=== PATIENT | male | born 1985 | race Caucasian/White ===

== ENCOUNTER 2017-05-21 03:02 | Observation (INO) | payer BC ==
[2017-05-21 04:12] LABS: #Basophils 0.1 thou/uL (0.0-0.2); #Eosinphils 0.1 thou/uL (0.0-0.7); #Lymphocytes 2.2 thou/uL (1.20-3.40); #Neutrophils 8.3 thou/uL (1.40-6.50); %Basophils 0.4 % (0.0-1.0); %Eosinophils 0.9 % (0.0-10.0); %Lymphocytes 19.2 % (21.0-51.0); %Monocytes 8.4 % (0.0-10.0); %Neutrophils 71.1 % (42.0-75.0); Mean Corpuscular HGB CONC 34.3 g/dL (32.0-36.0); Mean Corpuscular Hemoglobin 31.3 pg (27.0-31.0); Mean Corpuscular Volume 91.3 fl (80.0-94.0); Mean Platelet Volume 6.8 fL (7.4-10.4); Platelet Count 244 thou/uL (130-400); RBC Distribution Width 11.7 % (11.5-14.5); Red Blood Cell (RBC) Count 5.42 mill/uL (4.70-6.10); White Blood Cell (WBC) Count 11.7 thou/uL (4.8-10.8)
[2017-05-21 04:28] LABS: ALT (SGPT) 19 U/L (8-55); AST (SGOT) 16 U/L (5-34); Albumin 4.5 g/dL (3.5-5.0); Alkaline Phosphatase 82 U/L (40-150); Anion Gap 13 mmol/L (10-20); BUN (Urea Nitrogen) 13 mg/dL (8.9-20.6); Bilirubin, Total 0.5 mg/dL (0.2-1.2); Calc. Creatinine Clearance 0 mL/min (70-130); Calcium 9.8 mg/dL (7.8-10.44); Carbon Dioxide 27 mmol/L (22-29); Chloride 100 mmol/L (98-107); Estimated GFR-MDRD 61; Globulin 3.8 g/dL (2.4-3.5); Glucose 107 mg/dL (70-105); Potassium 3.9 mmol/L (3.5-5.1); Protein, Total 8.3 g/dL (6.0-8.3); Sodium 136 mmol/L (136-145)
[2017-05-21] MEDS ORDERED: Clindamycin/D5W 900 mg/50 ml Premix Bag ONE (04:32)
[2017-05-21] MEDS ORDERED: Morphine 4 MG/ML VIAL ONE ×2 (04:32→05:09)
[2017-05-21] MEDS ORDERED: Fentanyl 100 MCG/2 ML VIAL ONE ×4 (07:51→15:08)
[2017-05-21] MEDS ORDERED: Ondansetron HCl/PF 4 MG/2 ML Vial IVP PRN ×3 (08:28→15:13)
[2017-05-21] MEDS ORDERED: Benzonatate 100 MG CAP PO PRN (08:28)
[2017-05-21] MEDS ORDERED: Acetaminophen 325 MG TAB PO PRN (08:28)
[2017-05-21] MEDS ORDERED: Loratadine 10 MG TAB PO PRN (08:28)
[2017-05-21] MEDS ORDERED: Morphine 4 MG/ML Carpuject SLOW IVP PRN (08:28)
[2017-05-21] MEDS ORDERED: traMADol HCl 50 MG TAB PO PRN (08:28)
[2017-05-21] MEDS ORDERED: Nitroglycerin 0.4 MG TAB (25 Tab Bottle) SL PRN (08:28)
[2017-05-21] MEDS ORDERED: Calcium Carbonate 500 MG ChewTAB PO PRN (08:28)
[2017-05-21] MEDS ORDERED: HYDROcodone/Acetaminophen 5/325 mg Tablet PO PRN (08:28)
[2017-05-21] MEDS ORDERED: hydrALAZINE 20 MG/ML VIAL SLOW IVP PRN (08:28)
[2017-05-21] MEDS ORDERED: Mag-Al 1200 mg/1200 mg/30 ML UDCUP PO PRN (08:28)
[2017-05-21] MEDS ORDERED: Ketorolac Tromethamine 30 MG/ML VIAL IVP PRN (08:28)
[2017-05-21] MEDS ORDERED: Diabetic Tussin 200 MG/10 ML UDCUP PO PRN (08:28)
[2017-05-21] MEDS ORDERED: cloNIDine 0.1 MG TAB PO PRN (08:28)
[2017-05-21] MEDS ORDERED: Ibuprofen 600 MG TAB PO PRN (08:28)
[2017-05-21] MEDS ORDERED: Bisacodyl 5 MG TAB PO PRN ×2 (08:28)
[2017-05-21] MEDS ORDERED: Senokot 8.6 MG TAB PO PRN ×2 (08:28)
--- NOTE | 2017-05-21 08:47 | CT ---
PRELIMINARY REPORT/[facility]/EMERGENCY AFTER HOURS PROCEDURE: EXAM: CT Maxillofacial With Intravenous Contrast CLINICAL HISTORY: 31 years old, male; Signs and symptoms; Mass, lump, or swelling; Other: Nose; Patient HX: Swelling to nose TECHNIQUE: Axial computed tomography images of the face with intravenous contrast. CONTRAST: 100 mL of ISOVUE administered intravenously. COMPARISON: No relevant prior studies available. FINDINGS: Swelling in the inferior nasal and right upper lip tissues with a focal hypodensity measuring approxi mately 15 mm adjacent to the right lateral maxillary incisor tooth. No significant dental abscess det ected. There is minimal mucosal thickening in the right maxillary sinus. The remainder of the paranasal sinu ses are grossly clear. The visualized intracranial and intraorbital contents are unremarkable IMPRESSION: 1.5 cm abscess in the right upper lip/inferior nasal tissues. Findings may be odontogenic in origin Thank you for allowing us to participate in the care of your patient. Dictated and Authenticated by: Deniz Akers MD 05/21/2017 4:46 AM Central Time ([place] & [place]) FINAL REPORT CT FACIAL BONES: Date: 05/21/17 HISTORY: Patient with swelling/mass adjacent to nose. FINDINGS: This is the final report. Preliminary exam was performed by [facility]. I concur with the dict ation from [facility]. There is a right infranasal area of fluid collection compatible with an abscess. POS: [facility]
[2017-05-21] MEDS ORDERED: Enoxaparin Sodium 40 MG/0.4 ML SYRINGE SC SCH (09:00)
[2017-05-21] MEDS ORDERED: Lidocaine 1% PF 5 ML VIAL ONE (09:51)
[2017-05-21] MEDS ORDERED: Propofol 200 MG/20 ML VIAL ONE (09:51)
[2017-05-21] MEDS ORDERED: Glycopyrrolate 0.2 MG/ML 5 ML SYRINGE ONE (09:51)
[2017-05-21] MEDS: Clindamycin/D5W 600 MG in Premix Bag 1 BAG IVPB SCH ×3 (10:56→21:49)
[2017-05-21] MEDS: Saccharomyces boulardii 250 MG CAP PO SCH (10:56)
[2017-05-21] MEDS: Mupirocin 2% Ointment (Nasal) 1 GM TUBE EA NARE SCH ×2 (10:57→23:56)
--- NOTE | 2017-05-21 11:39 | HP ---
PRIMARY CARE PHYSICIAN: Thompson Mazariegos M.D. REASON FOR ADMISSION: Right nasal nares abscess with surrounding cellulitis. HISTORY OF PRESENT ILLNESS: A 31-year-old male who was recently treated by ENT , Dr. Granger as an outpatient basis for his abscess in his nose on the right side which required minor I and D and pus was drained. Patient was given Bactrim, mupirocin cream and Tylenol 3 for pain, but patient was not feeling better. He was having more swelling around his nose, especially upper lip and he was having throbbing pain over his face, predominantly nearby nose. Patient was also feeling abscess underneath his upper lip. His pain intensity was about 7/10. He did not have any fever or chills at home, but the patient was not feeling by himself any improvement with oral antibiotic therapy and that is why he decided to come to the emergency room for evaluation. In the emergency room, this patient had CT face, which showed 1.5 cm abscess in the right upper lip and inferior nasal tissue and he had leukocytosis. In the emergency room, this patient is given clindamycin, morphine x2 dose, fentanyl 100 mcg and IV fluid. Subsequently, we are admitting this patient for further evaluation. This patient denies any previous dental infection or dental workup. ALLERGIES: No known drug allergies. CURRENT HOME MEDICATIONS: The patient was given Bactrim-DS one tablet twice daily, mupirocin cream topical application as directed, and Tylenol #3 one tablet q.6 hourly p.r.n. for pain. PAST MEDICAL HISTORY: Reviewed and negative. PAST SURGICAL HISTORY: Minor I&D for nasal abscess was done on an outpatient basis. PAST PSYCHIATRIC HISTORY: Anxiety and depression, but not on any specific medication. SOCIAL HISTORY: Patient drinks alcohol occasionally. He denies any smoking. He denies any other illicit drug abuse. FAMILY HISTORY: No strong family history of premature coronary artery disease, stroke or cancer. EMERGENCY ROOM COURSE: Patient is given fentanyl 100 microgram, morphine 4 mg x2, clindamycin 900 mg, and IV fluid 1 liter. REVIEW OF SYSTEMS: The following complete review of systems was negative, unless otherwise mentioned in the HPI or below: Constitutional: Weight loss or gain, ability to conduct usual activities. Skin: Rash, itching. Eyes: Double vision, pain. ENT/Mouth: Nose bleeding, neck stiffness, pain, tenderness. Cardiovascular: Palpitations, dyspnea on exertion, orthopnea. Respiratory: Shortness of breath, wheezing, cough, hemoptysis, fever or night sweats. Gastrointestinal: Poor appetite, abdominal pain, heartburn, nausea, vomiting, constipation, or diarrhea. Genitourinary: Urgency, frequency, dysuria, nocturia. Musculoskeletal: Pain, swelling. Neurologic/Psychiatric: Anxiety, depression. Allergy/Immunologic: Skin rash, bleeding tendency. Please see my HPI for pertinent positives and negatives. All other review of systems reviewed and negative except as mentioned in the HPI. PHYSICAL EXAMINATION: VITAL SIGNS: On arrival, blood pressure 153/92, pulse 88, respiratory rate 18, temperature 98.2, saturation 97% on room air, respiratory rate 18. Weight 102.6 kilograms. GENERAL: Patient is currently alert, awake, no obvious acute distress. HEAD: Normocephalic, atraumatic. EYES: Pupils round, reactive to light. Extraocular muscle intact. ENT: Oropharynx within normal limits. Nasal abscess noted with mild drainage and surrounding facial cellulitis, predominantly upper lip is swollen. NECK: Supple, no JVD, no thyromegaly, no carotid bruit, no jugular venous distention. LUNGS: Clear to auscultation without any rhonchi or rales. CARDIAC: S1, S2 regular without any murmur. ABDOMEN: Soft, obesity present. Bowel sounds present, nontender, nondistended. No organomegaly, no mass, no suprapubic tenderness. BACK: Examination unremarkable, no CVA tenderness. EXTREMITIES: Upper extremity passive movements of all joints are normal. Lower extremities: No edema. Good peripheral pulsation. SKIN: No skin rash. HEMATOLOGICAL SYSTEM: No lymphadenopathy. PSYCHIATRIC: Normal affect. NEUROLOGIC: Nonfocal examination. SIGNIFICANT LABORATORY DATA AND IMAGING DATA: 1. CBC: WBC 11.7, hemoglobin 17.0, platelet 244,000. 2. BMP: Sodium 136, potassium 3.9, chloride 100, carbon dioxide 27, anion gap 13, BUN 13, creatinine 1.38, glucose 107, calcium 9.8. 3. LFT: AST 16, ALT 19, alkaline phosphatase 82, albumin 4.5. 4. CT face showing 1.5 cm abscess in the right upper lip, inferior nasal, tissue mucosal thickening of the right maxillary sinus. ASSESSMENT AND PLAN/IMPRESSION: 1. Nasal abscess right side with surrounding cellulitis, failed outpatient therapy. At this point, patient has not responded to Bactrim therapy and he has unbearable pain in the face because of facial cellulitis as well as nasal abscess. His pain will be controlled with morphine 4 mg every 3 hourly and Toradol 15 mg every 6 hourly and we will use [place] and ibuprofen as needed basis. The patient will be given clindamycin 600 mg IV q.6 hourly. We will obtain opinion of ENT doctor. At this point, the patient is medically stable and that is why we will keep him as an observation status. If there is no need of I&D, then we will consider discharging him home tomorrow evening with clindamycin. We will also use probiotics to prevent C. difficile infection. We will also continue with IV fluids and further decisions will defer to ENT doctor. We will also apply mupirocin cream topical daily. 2. Morbid obesity. Dietary education given, weight loss education given. 3. Elevated blood pressure without previous history of hypertension. I am suspecting related with pain, but at this point we will monitor vitals while in hospital and then we will decide whether he needs any blood pressure medication or not. 4. Chronic kidney disease stage 2/acute kidney injury, the patient will be given IV fluid and will repeat BMP and CBC tomorrow. 5. Deep venous thrombosis prophylaxis not needed because the patient is ambulatory. 6. Gastrointestinal prophylaxis, Pepcid 20 mg p.o. b.i.d. 7. Code status: The patient is FULL CODE. Patient does not have any surrogate decision maker. Disposition plan based on clinical course, likely within 24 hours. Plan of care discussed with the patient and family member at bedside in the emergency room. RENUKA
[2017-05-21] MEDS ORDERED: ISOVUE-370 76%-LOCM 1 ML ONE (13:46)
[2017-05-21] MEDS ORDERED: Bacitracin Zinc Ointment 30 gm TUBE ONE (13:52)
[2017-05-21] MEDS ORDERED: Lidocaine 1% w/Epinephrine 1:200K 30 ML VIAL ONE (13:52)
[2017-05-21] MEDS ORDERED: Midazolam HCl 2 mg/2 ml Vial ONE (13:59)
[2017-05-21] MEDS ORDERED: SUGAMMADEX SODIUM 500 MG/5 ML VIAL ONE (14:41)
[2017-05-21] MEDS ORDERED: Promethazine HCl 25 MG/ML VIAL IM PRN ×2 (15:12→15:13)
[2017-05-21] MEDS ORDERED: Promethazine HCl 25 MG/ML VIAL SLOW IVP PRN ×2 (15:12→15:13)
[2017-05-21] MEDS ORDERED: Acetaminophen/Codeine 30-300mg Tablet PO PRN ×2 (15:18→15:19)
--- NOTE | 2017-05-21 15:54 | CON ---
DATE OF CONSULTATION: 05/21/2017 REASON FOR CONSULTATION: Right nasal abscess and cellulitis. HISTORY OF PRESENT ILLNESS: Mr. Arango is a 31-year-old male who presents with a week history of pain in his right nostril and swelling. He has had recurrent episodes of folliculitis and in his nasal vestibules and he was treated with manipulation and ointment in his nose, but this one continued to worsen, any attempts to pop it were unsuccessful. He presented to Dr. Rangel's office where he had an I&D in the office done and was placed on Bactrim and Bactroban ointment to the nostril. He continued to worsen and presented to the ER early this morning with severe pain and swelling of the right upper lip and nares. CT scan done at that time showed some phlegmon in the upper lip area. No definitive abscess site was noted. No other problems were noted. He was admitted for IV antibiotics. I was asked to evaluate to see if he needed further incision and drainage. PAST MEDICAL HISTORY: Negative. PAST SURGICAL HISTORY: Negative. ALLERGIES TO MEDICATIONS: None. Please review his admission history and physical for further details of past medical history. PHYSICAL EXAMINATION: GENERAL: Well-developed, well-nourished white male in no acute distress at this time. HEENT: Normocephalic, atraumatic. Eyes: Pupils are equal, round, reactive to light. Extraocular movements are intact. Ears: Tympanic membranes are intact , mobile and clear. Nose shows swelling and erythema of the right nostril with an incision on the lower aspect of the nasal sill. There is a little bit of purulence coming out of it, but was unable to express a significant amount of purulence out of this area. Oral cavity and oropharynx shows some swelling in the upper lip and some erythema with a fluctuant swollen area in the gingival labial sulcus on the right side. No other lesions were noted. Teeth appear to be in good repair. NECK: Without significant adenopathy or mass. LUNGS: Clear to auscultation. HEART: Regular, without murmur or gallop. LABORATORY DATA AND X-RAY FINDINGS: I reviewed the CT scan. It does indeed show the swelling in the right upper lip with an area of apparent phlegmon and I do not see a well-defined abscess cavity. I do not see any evidence of any dental abscess that could be contributing to this problem appears to be related to the nasal infection. IMPRESSION: Right nasal vestibule abscess. PLAN: After discussion with him, we opted to do I and D. He did not tolerate the one that was done on Monday and wanted to have anesthesia, so he would not feel it again, so plan on taking him to the OR for further I&D of this lesion and will continue with the antibiotics. We will get cultures and see if we can resolve this problem. RENUKA
[2017-05-21] MEDS: Sodium Chloride 0.9% 1,000 ML IV SCH ×2 (17:09→23:56)
[2017-05-21] MEDS: Mupirocin 2% Ointment 22 GM Tube TOP SCH ×2 (17:12→21:49)
--- NOTE | 2017-05-21 21:13 | OP ---
DATE OF OPERATION: 05/21/2017 PREOPERATIVE DIAGNOSIS: Nasal abscess. POSTOPERATIVE DIAGNOSIS: Nasal abscess. PROCEDURE: Incision and drainage of nasal abscess. ANESTHESIA: General. PREOPERATIVE NOTE: Mr. Arango is a 31-year-old male, who has had a 1-week history of progressively worsening infection in his right nose, became an abscess, was drained in the office on Monday, but ardon s continued to worsen and now presents for incision and drainage in the operating room under general anesthesia. PROCEDURE IN DETAIL: After the patient received adequate general anesthesia, the patient was placed in supine position, prepped and draped in the usual standard fashion. The nose was examined and prob ed the previous drainage site and were able to get some purulent drainage out, which was cultured and sent off for microbiology. He had a dependent abscess that that was not draining out adequately thr ough this opening. In fact, it was bulging into the gingivolabial sulcus in the mouth and was opted to open up the dependent aspect of the abscess to help it drain using Bovie cautery and incision was made in the gingivolabial sulcus on the right side, then carried through into the abscess cavity, a l ot of pus was obtained. The wound was then probed with a hemostat and all the loculations were broke n up and then was irrigated profusely from both the nasal and the oral side. After irrigating profus hallie and was able to clean all of the purulent drainage out. I left the wounds open and to allow them to heal, and he was awakened, taken to recovery room in stable condition. The patient tolerated the procedure well. Estimated blood loss was minimal. Sponge and needle counts were correct at the end of the case. No complications.
[2017-05-21] MEDS: Famotidine 20 MG TAB PO SCH (21:49)
[2017-05-22] MEDS: Sodium Chloride 0.9% 1,000 ML IV SCH (03:51)
[2017-05-22] MEDS: Clindamycin/D5W 600 MG in Premix Bag 1 BAG IVPB SCH ×2 (03:51→09:06)
[2017-05-22 05:33] LABS: #Eosinphils 0.1 thou/uL (0.0-0.7); #Lymphocytes 2.2 thou/uL (1.20-3.40); #Monocytes 0.7 thou/uL (0.11-0.59); #Neutrophils 4.4 thou/uL (1.40-6.50); %Basophils 0.1 % (0.0-1.0); %Eosinophils 1.6 % (0.0-10.0); %Neutrophils 59.2 % (42.0-75.0); Hemoglobin 14.9 g/dL (14.0-18.0); Mean Corpuscular HGB CONC 33.3 g/dL (32.0-36.0); Mean Corpuscular Hemoglobin 30.8 pg (27.0-31.0); Mean Corpuscular Volume 92.6 fl (80.0-94.0); Mean Platelet Volume 6.8 fL (7.4-10.4); Platelet Count 247 thou/uL (130-400); RBC Distribution Width 11.7 % (11.5-14.5); Red Blood Cell (RBC) Count 4.84 mill/uL (4.70-6.10); White Blood Cell (WBC) Count 7.4 thou/uL (4.8-10.8)
[2017-05-22 05:54] LABS: Anion Gap 9 mmol/L (10-20); BUN (Urea Nitrogen) 11 mg/dL (8.9-20.6); Calc. Creatinine Clearance 142 mL/min (70-130); Calcium 9.1 mg/dL (7.8-10.44); Carbon Dioxide 29 mmol/L (22-29); Chloride 102 mmol/L (98-107); Estimated GFR-MDRD 78; Glucose 109 mg/dL (70-105); Sodium 136 mmol/L (136-145)
[2017-05-22] MEDS: Famotidine 20 MG TAB PO SCH (09:06)
[2017-05-22] MEDS: Saccharomyces boulardii 250 MG CAP PO SCH (09:06)
[2017-05-22] MEDS: Mupirocin 2% Ointment 22 GM Tube TOP SCH ×2 (09:09→13:14)
[2017-05-22] MEDS: Mupirocin 2% Ointment (Nasal) 1 GM TUBE EA NARE SCH (09:11)
[2017-05-22] MEDS ORDERED: Dexamethasone 20 MG/5 ML VIAL SLOW IVP ONE (11:30)
[2017-05-22] MEDS ORDERED: Dexamethasone 10 MG/ML VIAL SLOW IVP SCH (12:15)
[2017-05-22 12:37] VITALS: BP 121/79; TEMP 98.3
--- NOTE | 2017-05-22 12:40 | PDOC.PN ---
- Subjective Encounter Start Date: 05/22/17 Encounter Start Time: 12:39 Subjective: feels much better. able to tolerate regular diet -: S/P I&D of nasal abscess -: no fever/chills - Objective Resuscitation Status: Resuscitation Status FULL:Full Resuscitation MAR Reviewed: Yes Vital Signs & Weight: Vital Signs (12 hours) Temp Pulse Resp BP BP Pulse Ox 05/22/17 11:35 98.3 F 79 20 121/79 97 05/22/17 11:00 16 05/22/17 08:35 98.0 F 62 16 114/73 97 05/22/17 08:00 98.0 F 62 16 114/73 97 Weight Weight 224 lb 13.944 oz I&O: 05/21/17 05/22/17 05/23/17 06:59 06:59 06:59 Intake Total 240 400 Balance 240 400 Result Diagrams: 05/22/17 05:05 05/22/17 05:05 Additional Labs: Microbiology 05/21/17 14:37 Nose - Abscess Bacterial Culture - Preliminary 05/21/17 14:37 Nose - Abscess Staphylococcus aureus Phys Exam - Physical Examination Constitutional: NAD HEENT: PERRLA, moist MMs, sclera anicteric, oral pharynx no lesions swelling of upper lip Neck: no nodes, no JVD, supple, full ROM Respiratory: no wheezing, no rales, no rhonchi, clear to auscultation bilateral Cardiovascular: RRR, no significant murmur, no rub, gallop Gastrointestinal: soft, non-tender, no distention, positive bowel sounds Musculoskeletal: no edema, pulses present Neurological: non-focal, normal sensation, moves all 4 limbs Psychiatric: normal affect, A&O x 3 Skin: no rash Dx/Plan (1) Nasal abscess Code(s): J34.0 - ABSCESS, FURUNCLE AND CARBUNCLE OF NOSE Status: Acute (2) CECELIA (acute kidney injury) Code(s): N17.9 - ACUTE KIDNEY FAILURE, UNSPECIFIED Status: Resolved - Plan plan discussed w/ family, DVT proph w/SCDs Cont IV ABx till final Cx/S resulted. -: likley home in am. -: discussed w ENT Dr. Contreras-cleared by him for DC * . Review of Systems - Review of Systems Constitutional: malaise. negative: fever, chills, sweats, weakness, other ENT: Mouth Pain, Other (upper lip swelling) Respiratory: negative: Cough, Dry, Shortness of Breath, Hemoptysis, SOB with Excertion, Pleuritic Pain, Sputum, Wheezing Cardiovascular: negative: chest pain, palpitations, orthopnea, paroxysmal nocturnal dyspnea, edema, light headedness, other Gastrointestinal: negative: Nausea, Vomiting, Abdominal Pain, Diarrhea, Constipation, Melena, Hematochezia, Other Genitourinary: negative: Dysuria, Frequency, Incontinence, Hematuria, Retention , Other Musculoskeletal: negative: Neck Pain, Shoulder Pain, Arm Pain, Back Pain, Hand Pain, Leg Pain, Foot Pain, Other Neurological: negative: Weakness, Numbness, Incoordination, Change in Speech, Confusion, Seizures, Other - Medications/Allergies Allergies/Adverse Reactions: Allergies Allergy/AdvReac Type Severity Reaction Status Date / Time No Known Allergies Allergy Unverified 05/21/17 13:59 Medications: Current Medications Acetaminophen (Tylenol) 650 mg PO Q4H PRN PRN Reason: Headache/Fever or Pain Acetaminophen/Codeine Phosphate (Tylenol #3) 1 tab PO Q4H PRN PRN Reason: Moderate Pain (4-6) Last Admin: 05/21/17 22:04 Dose: 1 tab Acetaminophen/Codeine Phosphate (Tylenol #3) 2 tab PO Q4H PRN PRN Reason: Severe Pain (7-10) Hydrocodone Bitart/Acetaminophen ([place] 5/325) 1 tab PO Q4H PRN PRN Reason: Moderate Pain (4-6) Last Admin: 05/21/17 10:55 Dose: 1 tab Al Hydroxide/Mg Hydroxide (Maalox) 30 ml PO Q6H PRN PRN Reason: Heartburn or Indigestion Benzonatate (Tessalon) 100 mg PO Q4H PRN PRN Reason: Cough Bisacodyl (Dulcolax) 10 mg PO DAILYPRN PRN PRN Reason: Constipation Bisacodyl (Dulcolax) 10 mg PO DAILYPRN PRN PRN Reason: Constipation Calcium Carbonate (Tums) 1,000 mg PO Q4H PRN PRN Reason: Heartburn or Indigestion Clonidine (Catapres) 0.1 mg PO Q4H PRN PRN Reason: Systolic BP > 160 Dexamethasone (Decadron) 20 mg SLOW IVP 1215 [facility] Stop: 05/22/17 14:00 Famotidine (Pepcid) 20 mg PO BID [facility] Last Admin: 05/22/17 09:06 Dose: 20 mg Guaifenesin (Robitussin Sf) 200 mg PO Q4H PRN PRN Reason: Cough Hydralazine HCl (Apresoline) 10 mg SLOW IVP Q4H PRN PRN Reason: Systolic BP > 170 Clindamycin Phosphate/Dextrose (600 mg/ Device) 50 mls @ 100 mls/hr IVPB 0400, 1000,1600,2200 [facility] Last Admin: 05/22/17 09:06 Dose: 50 mls Sodium Chloride (Normal Saline 0.9%) 1,000 mls @ 75 mls/hr IV .[id number] [facility] Last Admin: 05/22/17 03:51 Dose: 1,000 mls Ibuprofen (Motrin) 600 mg PO Q6H PRN PRN Reason: Fever>101/(Mi/Mod/Sev) Pain Last Admin: 05/21/17 10:55 Dose: 600 mg Ketorolac Tromethamine (Toradol) 15 mg IVP Q6H PRN PRN Reason: Pain Stop: 05/26/17 08:29 Last Admin: 05/21/17 22:03 Dose: 15 mg Loratadine (Claritin) 10 mg PO DAILYPRN PRN PRN Reason: Sinus Symptoms Morphine Sulfate (Morphine) 4 mg SLOW IVP Q3H PRN PRN Reason: Pain Mupirocin (Bactroban 2% Nasal Ointment) 1 gm EA NARE BID [facility] Last Admin: 05/22/17 09:11 Dose: Not Given Mupirocin (Bactroban 2% Ointment) 0 gm TOP QID [facility] Last Admin: 05/22/17 09:09 Dose: 1 applic Nitroglycerin (Nitrostat) 0.4 mg SL Q5MIN PRN PRN Reason: Chest Pain Ondansetron HCl (Zofran) 4 mg IVP Q6H PRN PRN Reason: Nausea/Vomiting Saccharomyces Boulardii (Florastor) 250 mg PO DAILY [facility] Last Admin: 05/22/17 09:06 Dose: 250 mg Senna (Senokot) 2 tab PO HSPRN PRN PRN Reason: Constipation Senna (Senokot) 2 tab PO HSPRN PRN PRN Reason: Constipation Sodium Bicarbonate (Baking Soda Powder 30 Gm) 0 gm PO QID [place] Sodium Chloride (Table Salt (Nacl)) 0 gm PO QID [place] Tramadol HCl (Ultram) 50 mg PO Q4H PRN PRN Reason: Moderate Pain (4-6)
[2017-05-22] MEDS ORDERED: Sodium Chloride 30 GM PO SCH (13:00)
[2017-05-22] MEDS ORDERED: Sodium Bicarbonate 30 GM PO SCH (13:00)
--- NOTE | 2017-05-22 22:17 | DIS ---
DATE OF ADMISSION: 05/21/2017 DATE OF DISCHARGE: 05/22/2017 CONDITION AT THE TIME OF DISCHARGE: Stable and improved. DISCHARGE DIAGNOSES: 1. Nasal abscess of the right side with surrounding facial cellulitis, status post incision and amauri farris. 2. Acute kidney insufficiency, resolved. DISCHARGE DISPOSITION: Home. DISCHARGE MEDICATIONS: Clindamycin 300 mg p.o. q.i.d. for 7 days, Florastor 250 mg p.o. daily for 10 days, mupirocin ointment to the nose b.i.d., Tylenol as needed, Motrin as needed. CONSULTATIONS INHOUSE: Include ENT, Dr. Fred Contreras. PROCEDURES DONE IN THE HOSPITAL: Include: 1. CT scan of the facial bone, which shows abscess in the right upper lip/inferior nasal sinuses 1.5 cm. 2. Incision and drainage of the said abscess. HISTORY OF PRESENTING ILLNESS: Mr. Arango is a 31-year-old male without any significant past medica l history who presented to the hospital with complaints of pain and swelling of his face. He recentl y was seen as an outpatient in the ENT clinic for nasal abscess which was drained, but not adequately and he continued to have more pain and redness and presented to the ER. He was admitted after start ing on IV antibiotics as the oral antibiotic failure in the outpatient setting. Please see admission history and physical for further details. HOSPITAL COURSE: The patient was again seen by ENT, Dr. Contreras. He underwent more extensive I and D of the nasal abscess at this time with significant relief of his symptoms. He was started and jurgen nued on clindamycin. Bacterial cultures was obtained and so far they are growing Staphylococcus araceli us. Final results pending at this time. The patient has been doing very well and he is eager to go home for [place] today. He will be discharged and he will follow up with primary care physician as well as ENT in the outpatient setting. He will continue to take clindamycin by oral route. Prescri ptions were sent pharmacy. PRIMARY CARE PHYICIAN: Thompson Mazariegos M.D.
== END 2017-05-22 15:59 | disposition home or self-care (01) ==
LOC: ERS 03:02 → SURG B 06:01
PROVIDERS: ADMIT Internal Medicine Infectious Disease; ATTEND Internal Medicine Infectious Disease
PROC: 0J910ZZ Drainage of Face Subcutaneous Tissue and Fascia, Open Approach (ICD-10-PCS; principal; 2017-05-22)
DX: J34.0 Abscess, furuncle and carbuncle of nose (principal); N17.9 Acute kidney failure, unspecified; F41.8 Other specified anxiety disorders; R51 Headache; E66.01 Morbid (severe) obesity due to excess calories; R03.0 Elevated blood-pressure reading, without diagnosis of hypertension; N18.2 Chronic kidney disease, stage 2 (mild); Z68.29 Body mass index [BMI] 29.0-29.9, adult; Z98.890 Other specified postprocedural states
CPT/HCPCS: 36415; 70487; 80048; 80053; 85025; 86140; 87070; 87077; 87186; 87205; 96361; 96365; 96366; 96374; 96375; 96376; G0378; J1100; J1650; J1885; J2001; J2250; J2270; J2704; J3010; J3490